=== PATIENT | female | born 1960 | race African-American/Black ===

== ENCOUNTER 2022-07-17 16:12 | Emergency (ER) | payer OTHER ==
[~2022-07-17] VITALS: Ht 160 cm; Wt 74.4 kg
[~2022-07-17 16:12] MED LIST: PREVACID15 MG; ZANTAC15 MG/ML
== END 2022-07-17 21:10 | disposition home or self-care (01) ==
LOC: ER 16:12
DX: K29.70 Gastritis, unspecified, without bleeding (principal)

== ENCOUNTER 2023-03-17 09:28 | Emergency (ER) | payer OTHER ==
[~2023-03-17] VITALS: Ht 160 cm; Wt 72.6 kg
== END 2023-03-17 16:13 | disposition home or self-care (01) ==
LOC: ER 09:29
DX: K44.9 Diaphragmatic hernia without obstruction or gangrene (principal)
CPT/HCPCS: 96365; 96372; 99284; J1885; J2765; J3490

== ENCOUNTER 2024-07-17 13:41 | Emergency (ER) | payer OTHER ==
[~2024-07-17] VITALS: Ht 160 cm; Wt 74.4 kg
[2024-07-17] MEDS ORDERED: LOSARTAN POTAS100 MG PO (15:04)
[2024-07-17] MEDS ORDERED: 0.9 % SODIUM CHLORIDE 500 ML IV ONE (16:00)
[2024-07-17] MEDS ORDERED: MAG HYDROX/ALUMINUM HYD/SIMETH 30 ML BLIST.PACK PO ONE ×2 (16:00→16:03)
[2024-07-17] MEDS ORDERED: FAMOTIDINE/PF 20 MG/2 ML VIAL IV ONE (16:00)
[2024-07-17] MEDS ORDERED: ONDANSETRON HCL 2 MG/ML VIAL IV ONE (16:00)
[2024-07-17] MEDS ORDERED: FAMOTIDINE/PF 20 MG/2 ML VIAL ONE (16:03)
[2024-07-17] MEDS ORDERED: ONDANSETRON HCL 2 MG/ML VIAL ONE (16:03)
[2024-07-17 16:16] LABS: HEMATOCRIT 41.2 % (36.0-45.00); HEMOGLOBIN 13.9 g/dL (12.0-15.00); MEAN CELL VOLUME 86.4 fL (80.00-100.00); MEAN CORPUSCULAR HEMOGLOBIN 29.3 pg (27.00-32.0); MEAN CORPUSCULAR HGB CONC 33.9 g/dl (32.0-36.0); PLATELET COUNT 222 K/uL (150-450); RED BLOOD COUNT 4.76 M/uL (4.00-6.00); RED CELL DISTRIBUTION WIDTH 13.6 % (11.5-14.5)
[2024-07-17 19:25] LABS: BILIRUBIN TOTAL 0.82 mg/dL (0.3-1.2); CALCIUM 9.8 mg/dL (8.5-10.1); CREATININE SERUM 0.95 mg/dL (0.55-1.02); GFR 59.41; GLOBULINA 3.2 G/DL (2.4-3.5); POTASSIUM 4.06 mEq/L (3.5-5.1); TOTAL PROTEIN 7.2 gm/dL (6.4-8.2)
[2024-07-17] MEDS ORDERED: PEPCID AC20 MG PO (20:05)
[2024-07-17] MEDS ORDERED: ZOFRAN8 MG PO (20:05)
[2024-07-17] MEDS ORDERED: MAALOX MAXIMUM355 ML PO (20:05)
== END 2024-07-17 20:31 ==
LOC: ER 13:41
PROVIDERS: Emergency Medicine
DX: K29.70 Gastritis, unspecified, without bleeding (principal); R10.13 Epigastric pain; R07.89 Other chest pain
CPT/HCPCS: 36415; 93005; 96365; 96366; 99283; J2405; J3490; J7042

== ENCOUNTER 2024-11-25 15:52 | Emergency (ER) | payer OTHER ==
[~2024-11-25] VITALS: Ht 160 cm; Wt 77.1 kg
[~2024-11-25 15:52] MED LIST changes: +LOSARTAN POTAS100 MG PO; +MAALOX MAXIMUM355 ML PO; +PEPCID AC20 MG PO; +ZOFRAN8 MG PO
[2024-11-25] MEDS ORDERED: ONDANSETRON HCL 2 MG/ML VIAL ONE (16:44)
[2024-11-25] MEDS ORDERED: FAMOTIDINE/PF 20 MG/2 ML VIAL ONE (16:44)
[2024-11-25] MEDS ORDERED: KETOROLAC TROMETHAMINE 30 MG VIAL ONE (16:44)
[2024-11-25] MEDS ORDERED: 0.9 % SODIUM CHLORIDE 1,000 ML IV ONE (16:45)
[2024-11-25] MEDS ORDERED: ONDANSETRON HCL 2 MG/ML VIAL IV ONE (16:45)
[2024-11-25] MEDS ORDERED: KETOROLAC TROMETHAMINE 30 MG VIAL IV ONE (16:45)
[2024-11-25] MEDS ORDERED: FAMOtidine 10 MG/ML (4ML VIAL) IV ONE (16:45)
[2024-11-25 17:12] LABS: BASO % 0.4 % (0.1-1.2); EOS # 0.08 (0.04-0.54); EOS % 0.8 % (0.7-7.0); LYMPH # 2.13 (1.18-3.74); LYMPH % 21.8 % (19.3-53.1); MEAN PLATELET VOLUME 11.10 fl (9.4-12.4); MONO # 0.61 (0.24-0.82); MONO % 6.2 % (4.7-12.5); NEUT # 6.91 (1.56-6.13); NEUT % 70.6 % (34.0-71.1); RED CELL DISTRIBUTION WIDTH 12.5 % (11.6-14.4)
[2024-11-25 17:30] LABS: URINE APPEARANCE Clear; URINE BILIRRUBIN Negative (NEGATIVE); URINE BLOOD Negative; URINE COLOR Yellow; URINE GLUCOSE Negative (NEGATIVE); URINE KETONE Trace (NEGATIVE); URINE LEUKOCYTE Negative; URINE NITRATE Negative; URINE PROTEIN Trace (NEGATIVE); URINE UROBILINOGEN 1.0 E.U./dl
[2024-11-25 17:34] LABS: INR 1.05
[2024-11-25 17:34] LABS: URINE BACTERIA 152.4 uL (0.0-1933); URINE EPITHELIAL CELLS 9.3 uL (0.0-38.8); URINE RBC 22.2 uL (0.0-20.8); URINE WBC 5.5 uL (0.0-23.2)
[2024-11-25 17:47] LABS: URINE CAST 0.00 uL (0.0-1.40)
[2024-11-25 18:07] LABS: ALT/SGPT 17.0 U/L (12-78); AST/SGOT 9.0 U/L (15-37); BILIRUBIN TOTAL 0.96 mg/dL (0.3-1.2); BUN CREA RATIO 15.0 (7.0-25.0); CREATININE SERUM 0.78 mg/dL (0.55-1.02); GFR 74.59; GLOBULINA 3.7 G/DL (2.4-3.5); GLUCOSE FASTING 102.0 mg/dL (65-100); OSMOLALITY SERUM 281.0 MOSM/KG (275-295)
[2024-11-25] MEDS ORDERED: POTASSIUM BICARBONATE/CIT AC 25 MEQ TABLET.EFF PO ONE (18:30)
[2024-11-25 22:26] LABS: BUN CREA RATIO 17.0 (7.0-25.0); CREATININE SERUM 0.9 mg/dL (0.55-1.02); GFR 63.24; GLUCOSE FASTING 99.0 mg/dL (65-100); OSMOLALITY SERUM 278.0 MOSM/KG (275-295)
[2024-11-25] MEDS ORDERED: PROBIOTIC1 EAC2 PO (22:38)
[2024-11-25] MEDS ORDERED: ZOFRAN8 MG PO (22:38)
[2024-11-25] MEDS ORDERED: PEPCID AC20 MG PO (22:38)
[2024-11-25] MEDS ORDERED: LEVSIN/SL0.125 MG SL (22:38)
== END 2024-11-25 22:43 | disposition home or self-care (01) ==
LOC: ER 16:45
PROVIDERS: General Practice
DX: R10.13 Epigastric pain (principal); R10.9 Unspecified abdominal pain; I10 Essential (primary) hypertension
CPT/HCPCS: 36415; 74177; 96365; 96366; 99284; J1885; J2405; J3490; J7030; Q9965

== ENCOUNTER 2024-12-02 12:03 | Emergency (ER) | payer OTHER ==
[~2024-12-02] VITALS: Ht 160 cm; Wt 72.6 kg
[~2024-12-02 12:03] MED LIST changes: +LEVSIN/SL0.125 MG SL; +PROBIOTIC1 EAC2 PO
[2024-12-02 12:54] VITALS: BP 145/90; O2SAT 98
[2024-12-02] MEDS ORDERED: FAMOTIDINE/PF 20 MG in 0.9 % SODIUM CHLORIDE 8 ML IV PUSH STA (14:03)
[2024-12-02] MEDS ORDERED: METOCLOPRAMIDE HCL 5 MG/ML VIAL ONE (14:06)
[2024-12-02] MEDS ORDERED: FAMOTIDINE/PF 20 MG/2 ML VIAL ONE (14:06)
[2024-12-02] MEDS ORDERED: ONDANSETRON HCL 2 MG/ML VIAL IV STA (14:14)
[2024-12-02] MEDS ORDERED: METOCLOPRAMIDE HCL 10 MG in DEXTROSE 5 % IN WATER 50 ML IV ONE (14:15)
[2024-12-02 14:49] LABS: BASO % 0.5 % (0.1-1.2); EOS # 0.10 (0.04-0.54); EOS % 1.2 % (0.7-7.0); LYMPH # 1.85 (1.18-3.74); LYMPH % 21.6 % (19.3-53.1); MEAN PLATELET VOLUME 11.30 fl (9.4-12.4); MONO # 0.55 (0.24-0.82); MONO % 6.4 % (4.7-12.5); NEUT # 6.01 (1.56-6.13); NEUT % 70.2 % (34.0-71.1); RED CELL DISTRIBUTION WIDTH 12.4 % (11.6-14.4)
[2024-12-02 15:30] LABS: ALT/SGPT 20.0 U/L (12-78); AST/SGOT 15.0 U/L (15-37); BILIRUBIN TOTAL 0.83 mg/dL (0.3-1.2); BUN CREA RATIO 10.0 (7.0-25.0); CREATININE SERUM 0.96 mg/dL (0.55-1.02); GFR 58.7; GLOBULINA 3.9 G/DL (2.4-3.5); GLUCOSE FASTING 90.0 mg/dL (65-100); OSMOLALITY SERUM 278.0 MOSM/KG (275-295)
== END 2024-12-02 16:26 | disposition home or self-care (01) ==
LOC: ER 12:03
PROVIDERS: Emergency Medicine
DX: K29.00 Acute gastritis without bleeding (principal); K21.9 Gastro-esophageal reflux disease without esophagitis; R10.9 Unspecified abdominal pain; I10 Essential (primary) hypertension
CPT/HCPCS: 36415; 96365; 99282; J2405; J3490 ×2